=== PATIENT | male | born 1975 | race Caucasian/White ===

== ENCOUNTER 2017-01-29 15:20 | Inpatient (IN) | payer OTHER ==
[~2017-01-29] VITALS: Ht 170.2 cm; Wt 81.6 kg
[2017-01-29 16:37] LABS: BASOPHIL % 0.4 % (0-2); PLATELET COUNT 158 x10^3mcL (130-400); RED CELL DISTRIBUTION WIDTH 14.1 % (11.5-14.5)
[2017-01-29 17:00] LABS: ALKALINE PHOSPHATASE 97 U/L (46-116); ALT/SGPT 171 U/L (16-63); AST/SGOT 67 U/L (15-37); CALCIUM 8.5 mg/dL (8.5-10.1); CARBON DIOXIDE 22.5 mmol/L (21-32); CHLORIDE SERUM 99 mmol/L (98-107); CREATININE SERUM 1.3 mg/dL (0.7-1.3); GFR1 > 60 mL/min; POTASSIUM SERUM 3.9 mmol/L (3.5-5.1); SODIUM SERUM 134 mmol/L (136-145); TOTAL PROTEIN, SERUM 8.1 g/dL (6.4-8.2)
[2017-01-29 17:05] LABS: ALBUMIN 3.3 g/dL (3.4-5.0)
[2017-01-29 17:06] LABS: GLUCOSE SERUM 521 mg/dL (74-106)
[2017-01-29 18:15] LABS: microscopic required? NO
[2017-01-29 18:32] LABS: urine erythrocyte NEGATIVE (NEGATIVE)
[2017-01-29 18:44] LABS: AMPHETAMINE QUAL UR NONE DETECTED (NEG <=1000)
[2017-01-29 19:11] VITALS: BP 130/91
[2017-01-29 21:49] LABS: AMYLASE 36 U/L (25-115); LIPASE 138 IU/L (73-393); PHOSPHOROUS 3.7 mg/dL (2.5-4.9)
[2017-01-29 21:50] LABS: CHOLESTEROL 242 mg/dL (<200); HDL CHOLESTEROL 22 mg/dL (40-60); TRIGLYCERIDES 656 mg/dL (<150)
[2017-01-29 21:55] LABS: FREE T4 0.95 ng/dL (0.76-1.46); FREE THYROXINE INDEX 2.7 ug/dL (1.4-4.5); T4(THYROXINE) 8.5 ug/dL (4.7-13.3)
[2017-01-29 23:02] LABS: T3 TOTAL 0.97 ng/mL
[2017-01-30] VITALS (11 sets, daily range): BP systolic 112–133; BP diastolic 79–92; Ht 170.2 cm; Wt 81.6 kg
[2017-01-30 05:53] LABS: BASOPHIL % 0.3 % (0-2); PLATELET COUNT 162 x10^3mcL (130-400); RED CELL DISTRIBUTION WIDTH 14.1 % (11.5-14.5)
[2017-01-30 06:25] LABS: CALCIUM 8.6 mg/dL (8.5-10.1); CARBON DIOXIDE 27.1 mmol/L (21-32); CHLORIDE SERUM 104 mmol/L (98-107); CREATININE SERUM 0.9 mg/dL (0.7-1.3); GFR1 > 60 mL/min; GLUCOSE SERUM 246 mg/dL (74-106); PHOSPHOROUS 3.9 mg/dL (2.5-4.9); POTASSIUM SERUM 3.8 mmol/L (3.5-5.1); SODIUM SERUM 139 mmol/L (136-145)
[2017-01-30] MEDS ORDERED: LIPI20 PO (17:34)
[2017-01-30] MEDS ORDERED: ECO81 PO (17:35)
[2017-01-30] MEDS ORDERED: METOPROLOL TART25 M1 PO (17:35)
[2017-01-30] MEDS ORDERED: ZES5 PO (17:35)
[2017-01-30] MEDS ORDERED: METFORMIN HCL1000 MG PO (17:36)
[2017-01-30] MEDS ORDERED: LEVEMIR100 U/M1 SC (17:37)
[2017-01-31 06:34] VITALS: BP 97/65
[2017-01-31 07:24] LABS: BASOPHIL % 0.4 % (0-2); PLATELET COUNT 146 x10^3mcL (130-400); RED CELL DISTRIBUTION WIDTH 14.3 % (11.5-14.5)
[2017-01-31 07:37] LABS: CALCIUM 8.1 mg/dL (8.5-10.1); CARBON DIOXIDE 25.4 mmol/L (21-32); CHLORIDE SERUM 105 mmol/L (98-107); CREATININE SERUM 0.7 mg/dL (0.7-1.3); GFR1 > 60 mL/min; GLUCOSE SERUM 185 mg/dL (74-106); POTASSIUM SERUM 3.5 mmol/L (3.5-5.1); SODIUM SERUM 138 mmol/L (136-145)
[2017-01-31 10:32] VITALS: BP 130/76
[2017-01-31 17:23] VITALS: BP 138/82
[2017-01-31 21:03] VITALS: BP 133/87
[2017-02-01 05:59] VITALS: BP 115/77
[2017-02-01 09:50] VITALS: BP 115/78
[2017-02-01 14:15] VITALS: BP 122/84
[2017-02-01 17:23] VITALS: BP 122/78
[2017-02-01 21:06] VITALS: BP 115/75
[2017-02-02 05:13] VITALS: BP 111/67
[2017-02-02 10:12] VITALS: BP 121/80
[2017-02-02 14:25] VITALS: BP 113/71
[2017-02-02 17:19] VITALS: BP 135/91
[2017-02-02 20:27] VITALS: BP 128/82
[2017-02-03 05:29] VITALS: BP 103/63
[2017-02-03 06:52] LABS: BASOPHIL % 0.4 % (0-2); PLATELET COUNT 146 x10^3mcL (130-400)
[2017-02-03 06:56] LABS: CALCIUM 8.7 mg/dL (8.5-10.1); CHLORIDE SERUM 105 mmol/L (98-107); CREATININE SERUM 0.8 mg/dL (0.7-1.3); GFR1 > 60 mL/min; GLUCOSE SERUM 205 mg/dL (74-106); POTASSIUM SERUM 3.5 mmol/L (3.5-5.1); SODIUM SERUM 141 mmol/L (136-145)
[2017-02-03 09:45] VITALS: BP 125/79
[2017-02-03 12:48] VITALS: BP 132/83
[2017-02-03 16:12] VITALS: BP 132/83
== END 2017-02-03 17:06 | disposition short-term general hospital (02) | DRG 286 ==
LOC: ED 15:20 → DU 17:17
PROVIDERS: Emergency Medicine; Internal Medicine Interventional Cardiology; Student in an Organized Health Care Education/Training Program; ADMIT Family Medicine
PROC: B211YZZ Fluoroscopy of Multiple Coronary Arteries using Other Contrast (ICD-10-PCS; 2017-01-30)
PROC: B215YZZ Fluoroscopy of Left Heart using Other Contrast (ICD-10-PCS; 2017-01-30)
PROC: 4A023N7 Measurement of Cardiac Sampling and Pressure, Left Heart, Percutaneous Approach (ICD-10-PCS; principal; 2017-01-30 09:30)
DX: I24.9 Acute ischemic heart disease, unspecified (principal); N17.0 Acute kidney failure with tubular necrosis; E44.1 Mild protein-calorie malnutrition; D68.69 Other thrombophilia; E11.65 Type 2 diabetes mellitus with hyperglycemia; I16.0 Hypertensive urgency; F41.9 Anxiety disorder, unspecified; E78.5 Hyperlipidemia, unspecified; Z68.27 Body mass index [BMI] 27.0-27.9, adult; Z91.19 Patient's noncompliance with other medical treatment and regimen; K21.9 Gastro-esophageal reflux disease without esophagitis
CPT/HCPCS: CLHCL; 82962; 83880; 84439; 90658; C1760; C1769; C1887; C1894; G0480; J1327; J1644; J1815; J2001; J2250; J2270; J2405; J3010; J3490; J7030; J7040; Q0092; Q9967